=== PATIENT | male | born 1940 | race Caucasian/White ===

== ENCOUNTER 2016-07-01 13:56 | Emergency (ER) | payer OTHER ==
[~2016-07-01] VITALS: Ht 160 cm; Wt 101.4 kg
[~2016-07-01 13:56] MED LIST: APRISO0.375 GM PO; ASACOL400 MG PO; ASPIRIN325 MG PO; AZITHROMYCIN250 MG1 PO; CILOSTAZOL100 MG PO; COLCHICINE,COL0.6 MG PO; COLCRYS0.6 MG PO; FUROSEMIDE40 MG PO; GABAPENTIN300 MG PO; GLIPIZIDE10 M1 PO; GLYBURID-METFO1 EAC3 PO; HUMALOG100 UNIT/1 SC; HYDROCODON-ACE1 EAC7 PO; LASIX20 MG PO; LOVASTATIN20 MG PO; METOPROLOL SUCC25 MG PO; METOPROLOL TART50 MG PO; NITROGLYCERIN0.4 MG SL; NOVOLIN N100 UNIT/1 SC; NOVOLIN N100 UNITS/ PO; NOVOLIN N100 UNITS/ SC; NOVOLOG 10100 UNITS/ SC; OSTEO BI-FLEX1 EAC1 PO; PAXIL10 MG PO; PLAVIX75 MG PO; PREDNISONE10 MG PO; PRINIVIL10 MG PO; SPIRIVA1 INHALATI IH; TRADJENTA5 MG PO; TRAMADOL HCL50 MG PO
[2016-07-01] MEDS ORDERED: FLOMAX0.4 MG PO (14:26)
[2016-07-01] MEDS ORDERED: LIALDA1.2 GM PO (14:27)
[2016-07-01] MEDS ORDERED: HUMALOG100 UNIT/2 SC (14:27)
[2016-07-01] MEDS ORDERED: TRAMADOL-ACETA1 EACH PO (14:28)
[2016-07-01] MEDS ORDERED: ALLOPURINOL100 MG PO (14:28)
[2016-07-01] MEDS ORDERED: FLUOXETINE HCL20 M1 PO (14:29)
[2016-07-01] MEDS ORDERED: FLUOXETINE HCL20 MG PO (14:30)
[2016-07-01] MEDS ORDERED: NITROGLYCERIN0.4 MG SL (14:30)
[2016-07-01] MEDS ORDERED: PENTOXIFYLLINE400 MG PO (14:31)
[2016-07-01] MEDS ORDERED: MUPIROCIN15 GM TP (14:31)
[2016-07-01 14:39] LABS: BASOPHIL COUNT 0.1 K/uL (0-0.1); EOSINOPHIL (%) 1.1 % (0-5); EOSINOPHIL COUNT 0.1 K/uL (0-0.3); IMMATURE GRANULOCYTE (%) 0.8 % (0.0-0.7); IMMATURE GRANULOCYTE COUNT 0.1 K/uL; INSTRUMENT ABS NEUTROPHIL CT 5.8 K/uL; LYMPHOCYTE COUNT 3.3 K/uL (1.0-2.8); MCH 33.3 PG (29.0-34.0); MCHC 32.8 G/DL (30.0-36.0); MCV 101.8 FL (86-99); MEAN PLAT.VOLUME 9.2 uM^3 (9.0-12.4); MONOCYTE (%) 18.6 % (3-12); MONOCYTE COUNT 2.1 K/uL (0-0.8); NEUTROPHIL (%) 50.2 % (45-76); NEUTROPHIL COUNT 5.8 K/uL (1.8-6.4); PLATELET COUNT 219 K/uL (156-360); RBC DIS.WIDTH-SD 52.1 % (39-53); RED BLOOD COUNT 3.93 M/uL (4.00-5.50); WHITE BLOOD COUNT 11.5 K/uL (4.1-10.2)
[2016-07-01 14:47] LABS: INTER. NORMALIZED RATIO 1.2
[2016-07-01 14:53] LABS: CHLORIDE 112 mEq/L (99-109); POTASSIUM 5.1 mEq/L (3.7-5.4); SODIUM 137 mEq/L (136-147)
[2016-07-01 14:55] LABS: GLUCOSE 59 mg/dL (70-99)
[2016-07-01 14:56] LABS: ANION GAP 9 MEQ/L (2-14)
[2016-07-01 14:59] LABS: GFR ESTIMATE (CALCULATED) 37 mL/min/
[2016-07-01 15:00] LABS: UREA NITROGEN (BUN) 53 mg/dL (9-23)
[2016-07-01] MEDS ORDERED: CLEOCIN300 MG PO (17:07)
[2016-07-01 18:31] VITALS: BP 117/43
[2016-07-05] MEDS ORDERED: ACETAMINOPHEN-1 EAC1 PO (15:37)
[2016-07-05] MEDS ORDERED: PEPCID AC20 MG PO (15:52)
[2016-07-05] MEDS ORDERED: PROAIR HFA8.5 GM IH (15:53)
[2016-07-05] MEDS ORDERED: CILOSTAZOL50 MG PO (15:54)
[2016-07-05] MEDS ORDERED: HUMULIN N100 UNIT/2 SC (15:54)
== END 2016-07-01 18:32 | disposition home or self-care (01) ==
LOC: EME 13:56
PROVIDERS: Emergency Medicine
DX: L03.031 Cellulitis of right toe (principal); E86.0 Dehydration; E11.9 Type 2 diabetes mellitus without complications; G89.29 Other chronic pain; J44.9 Chronic obstructive pulmonary disease, unspecified; E78.5 Hyperlipidemia, unspecified; I10 Essential (primary) hypertension; K21.9 Gastro-esophageal reflux disease without esophagitis; I25.10 Atherosclerotic heart disease of native coronary artery without angina pectoris; Z98.61 Coronary angioplasty status; Z95.0 Presence of cardiac pacemaker; Z79.4 Long term (current) use of insulin; Z79.82 Long term (current) use of aspirin; Z87.891 Personal history of nicotine dependence
CPT/HCPCS: 80048; 85025; 85610; 93005; 93926; 99281; 99285; J7030

== ENCOUNTER 2016-07-09 06:56 | Day surgery (SDC) | payer OTHER ==
[~2016-07-09] VITALS: Ht 160 cm; Wt 101.0 kg
[~2016-07-09 06:56] MED LIST changes: +ACETAMINOPHEN-1 EAC1 PO; +ALLOPURINOL100 MG PO; +CILOSTAZOL50 MG PO; +CLEOCIN300 MG PO; +FLOMAX0.4 MG PO; +FLUOXETINE HCL20 M1 PO; +FLUOXETINE HCL20 MG PO; +HUMALOG100 UNIT/2 SC; +HUMULIN N100 UNIT/2 SC; +LIALDA1.2 GM PO; +MUPIROCIN15 GM TP; +PENTOXIFYLLINE400 MG PO; +PEPCID AC20 MG PO; +PROAIR HFA8.5 GM IH; +TRAMADOL-ACETA1 EACH PO
[2016-07-09 07:50] LABS: POINT-OF-CARE METER ID UU13113696
[2016-07-09] MEDS ORDERED: MOTRIN600 MG PO (07:50)
== END 2016-07-09 16:25 | disposition home or self-care (01) ==
LOC: CATH 06:56
PROVIDERS: Surgery
DX: I70.263 Atherosclerosis of native arteries of extremities with gangrene, bilateral legs (principal); I70.92 Chronic total occlusion of artery of the extremities; L97.519 Non-pressure chronic ulcer of other part of right foot with unspecified severity; E11.9 Type 2 diabetes mellitus without complications; Z79.4 Long term (current) use of insulin
CPT/HCPCS: 82948; 94660; C1725; C1760; C1769; C1887; C1894; J1644; J2250; J2720; J3010; S0020

== ENCOUNTER 2016-07-20 11:20 | Day surgery (SDC) | payer OTHER ==
[~2016-07-20] VITALS: Ht 160 cm; Wt 100.0 kg
[~2016-07-20 11:20] MED LIST changes: +GLIPIZIDE10 MG PO; +GLIPIZIDE5 MG PO; +LO-DOSE ASPIRIN81 M2 PO; +MOTRIN600 MG PO
== END 2016-07-20 17:05 | disposition home or self-care (01) ==
LOC: CATH 11:20
DX: I70.262 Atherosclerosis of native arteries of extremities with gangrene, left leg (principal); I70.245 Atherosclerosis of native arteries of left leg with ulceration of other part of foot; I70.92 Chronic total occlusion of artery of the extremities; L97.529 Non-pressure chronic ulcer of other part of left foot with unspecified severity; E11.9 Type 2 diabetes mellitus without complications; I25.10 Atherosclerotic heart disease of native coronary artery without angina pectoris; I10 Essential (primary) hypertension; G47.30 Sleep apnea, unspecified; Z95.0 Presence of cardiac pacemaker; Z72.0 Tobacco use; J44.9 Chronic obstructive pulmonary disease, unspecified; E78.5 Hyperlipidemia, unspecified
CPT/HCPCS: C1725; C1760; C1769; C1887; C1894; J1644; J2250; J3010; S0020

== ENCOUNTER → 2016-07-26 | Outpatient (CLI) | payer OTHER | END | disposition home or self-care (01) | LOC: MBXRAY 16:44 → RAD 16:44 | DX: M19.071 Primary osteoarthritis, right ankle and foot (principal); M19.072 Primary osteoarthritis, left ankle and foot; Z89.421 Acquired absence of other right toe(s); I70.292 Other atherosclerosis of native arteries of extremities, left leg; I70.291 Other atherosclerosis of native arteries of extremities, right leg; I70.268 Atherosclerosis of native arteries of extremities with gangrene, other extremity; M79.9 Soft tissue disorder, unspecified | CPT/HCPCS: 73630 ==

== ENCOUNTER 2016-08-08 05:23 | Inpatient (IN) | payer OTHER ==
[~2016-08-08] VITALS: Ht 160 cm; Wt 99.8 kg
[~2016-08-08 05:23] MED LIST changes: +TRENTAL400 MG PO
[2016-08-08 06:09] VITALS: BP 135/49
[2016-08-08 06:31] LABS: POINT-OF-CARE METER ID UU14174212
[2016-08-08 09:17] LABS: POINT-OF-CARE METER ID UU13113675
[2016-08-08 12:17] LABS: POINT-OF-CARE METER ID UU14188577
[2016-08-08 12:45] VITALS: BP 119/50
[2016-08-08 16:15] VITALS: BP 138/63
[2016-08-08 16:19] LABS: POINT-OF-CARE METER ID UU14188577
[2016-08-08 19:28] VITALS: BP 151/67
[2016-08-08 23:11] VITALS: BP 131/60
[2016-08-09 07:07] LABS: POINT-OF-CARE METER ID UU14149397
[2016-08-09 07:43] VITALS: BP 121/59
[2016-08-09] MEDS ORDERED: PERCOCET 5/31 TABLET PO (09:22)
[2016-08-09 11:49] LABS: POINT-OF-CARE METER ID UU14149397
[2016-08-09] MEDS ORDERED: NORCO 5/3251 TABLET PO (16:34)
[2016-08-09 16:40] LABS: POINT-OF-CARE METER ID UU14149397
[2016-08-09 17:54] VITALS: BP 109/66
[2016-08-09 20:21] VITALS: BP 112/56
[2016-08-09 23:24] VITALS: BP 117/58
[2016-08-10 07:02] LABS: POINT-OF-CARE METER ID UU14188577
[2016-08-10 08:16] VITALS: BP 131/59
[2016-08-10 11:08] LABS: HEMATOCRIT 28.8 % (38.0-50.0); MCH 33.2 PG (29.0-34.0); MCHC 32.3 G/DL (30.0-36.0); MCV 102.9 FL (86-99); MEAN PLAT.VOLUME 9.8 uM^3 (9.0-12.4); PLATELET COUNT 163 K/uL (156-360); RBC DIS.WIDTH-CV 15.1 % (11.8-14.6); RBC DIS.WIDTH-SD 56.8 % (39-53); WHITE BLOOD COUNT 11.3 K/uL (4.1-10.2)
[2016-08-10 11:44] LABS: ANION GAP 10 MEQ/L (2-14); CHLORIDE 103 MEQ/L (99-109); GFR ESTIMATE (CALCULATED) 27 mL/min/; GLUCOSE 272 mg/dL (70-99); SAMPLE HEMOLYSIS CHECK 0; SAMPLE ICTERIC CHECK 0; SAMPLE LIPEMIA CHECK 0; SODIUM 132 MEQ/L (136-147); UREA NITROGEN (BUN) 50 mg/dL (9-23)
[2016-08-10 16:07] LABS: ADD MIUA? YES; BILIRUBIN NEGATIVE; BLOOD NEGATIVE; COLOR YELLOW ((YELLOW)); GLUCOSE (STRIP) NEGATIVE; KETONES NEGATIVE; LEUKOCYTES NEGATIVE; NITRITE NEGATIVE; PROTEIN (STRIP) NEGATIVE; SPECIFIC GRAVITY 1.017 (1.000-1.030); UROBILINOGEN 0.2 MG/DL (0.2-1.0)
[2016-08-10 16:10] VITALS: BP 127/62
[2016-08-10 16:20] LABS: BACTERIA RARE /HPF; EPITHELIAL CELLS NONE SEEN /HPF; HYALINE CASTS 0-5 /LPF; MUCUS TRACE /LPF; RED BLOOD CELLS 20-30 /HPF (0-5); WHITE BLOOD CELLS 0-5 /HPF (0-5)
[2016-08-10 16:40] LABS: URIC ACID 8.5 mg/dL (3.1-9.2)
[2016-08-10 16:41] LABS: INTACT PARATHYROID HORMONE 17 pg/mL (10-69)
[2016-08-10 23:27] VITALS: BP 111/56
[2016-08-11 05:40] LABS: HEMATOCRIT 25.3 % (38.0-50.0); MCH 32.8 PG (29.0-34.0); MCV 102.4 FL (86-99); PLATELET COUNT 148 K/uL (156-360); RBC DIS.WIDTH-CV 14.8 % (11.8-14.6); RBC DIS.WIDTH-SD 55.6 % (39-53); RED BLOOD COUNT 2.47 M/uL (4.00-5.50); WHITE BLOOD COUNT 8.7 K/uL (4.1-10.2)
[2016-08-11 06:05] LABS: ALKALINE PHOSPHATASE 72 IU/L (3-129); ANION GAP 9 MEQ/L (2-14); CHLORIDE 104 MEQ/L (99-109); GFR ESTIMATE (CALCULATED) 22 mL/min/; MAGNESIUM 2.3 mg/dl (1.3-2.7); POTASSIUM 4.4 MEQ/L (3.7-5.4); SAMPLE HEMOLYSIS CHECK 0; SAMPLE ICTERIC CHECK 0; SAMPLE LIPEMIA CHECK 0; SODIUM 133 MEQ/L (136-147); TOTAL BILIRUBIN 0.9 MG/DL (0.0-1.0); UREA NITROGEN (BUN) 59 mg/dL (9-23)
[2016-08-11 06:06] LABS: GLUCOSE 70 mg/dL (70-99)
[2016-08-11 07:06] LABS: EOSINOPHIL (%) 1.8 % (0-5); EOSINOPHIL COUNT 0.2 K/uL (0-0.3); IMMATURE GRANULOCYTE (%) 0.6 % (0.0-0.7); IMMATURE GRANULOCYTE COUNT 0.1 K/uL; INSTRUMENT ABS NEUTROPHIL CT 4.8 K/uL; LYMPHOCYTE COUNT 2.1 K/uL (1.0-2.8); MONOCYTE (%) 18.5 % (3-12); MONOCYTE COUNT 1.6 K/uL (0-0.8); NEUTROPHIL (%) 54.8 % (45-76); NEUTROPHIL COUNT 4.8 K/uL (1.8-6.4)
[2016-08-11 16:48] VITALS: BP 130/60
[2016-08-11 23:20] VITALS: BP 132/62
[2016-08-12 08:00] VITALS: BP 131/57
[2016-08-12 09:24] LABS: ANION GAP 9 MEQ/L (2-14); CHLORIDE 103 MEQ/L (99-109); GFR ESTIMATE (CALCULATED) 28 mL/min/; POTASSIUM 4.7 MEQ/L (3.7-5.4); SAMPLE HEMOLYSIS CHECK 0; SAMPLE ICTERIC CHECK 0; SAMPLE LIPEMIA CHECK 0; SODIUM 132 MEQ/L (136-147); UREA NITROGEN (BUN) 72 mg/dL (9-23)
[2016-08-12 09:25] LABS: GLUCOSE 160 mg/dL (70-99)
[2016-08-12 16:32] VITALS: BP 134/63
[2016-08-12 19:51] LABS: UR CREATININE CONCENTRATION 88.3 MG/DL
[2016-08-12 21:47] VITALS: BP 136/61
[2016-08-12 23:36] VITALS: BP 128/63
[2016-08-13 07:00] VITALS: BP 134/63
[2016-08-13] MEDS ORDERED: A THRU Z SELEC1 EAC2 PO (09:18)
[2016-08-13 10:15] LABS: ANION GAP 8 MEQ/L (2-14); CHLORIDE 107 MEQ/L (99-109); GFR ESTIMATE (CALCULATED) 37 mL/min/; GLUCOSE 202 mg/dL (70-99); POTASSIUM 4.8 MEQ/L (3.7-5.4); SAMPLE HEMOLYSIS CHECK 0; SAMPLE ICTERIC CHECK 0; SAMPLE LIPEMIA CHECK 0; SODIUM 135 MEQ/L (136-147); UREA NITROGEN (BUN) 67 mg/dL (9-23)
[2016-08-13 15:38] VITALS: BP 140/61
[2016-08-13 17:28] LABS: HEMATOCRIT 29.8 % (38.0-50.0); MCH 32.3 PG (29.0-34.0); MCHC 32.2 G/DL (30.0-36.0); MCV 100.3 FL (86-99); MEAN PLAT.VOLUME 9.9 uM^3 (9.0-12.4); RBC DIS.WIDTH-CV 14.4 % (11.8-14.6); WHITE BLOOD COUNT 11.3 K/uL (4.1-10.2)
[2016-08-13 17:29] LABS: PLATELET COUNT 257 K/uL (156-360); RED BLOOD COUNT 2.97 M/uL (4.00-5.50)
[2016-08-13 23:30] VITALS: BP 131/66
[2016-08-14 05:54] LABS: ANION GAP 9 MEQ/L (2-14); CHLORIDE 108 MEQ/L (99-109); GFR ESTIMATE (CALCULATED) 39 mL/min/; GLUCOSE 187 mg/dL (70-99); POTASSIUM 5.2 MEQ/L (3.7-5.4); SAMPLE HEMOLYSIS CHECK 0; SAMPLE ICTERIC CHECK 0; SAMPLE LIPEMIA CHECK 0; SODIUM 137 MEQ/L (136-147); UREA NITROGEN (BUN) 55 mg/dL (9-23)
[2016-08-14 06:56] LABS: POINT-OF-CARE METER ID UU14149397
[2016-08-14 07:49] VITALS: BP 126/83
[2016-08-14 15:06] LABS: C DIFF TOXIN NEGATIVE (NEGATIVE)
[2016-08-14 15:36] LABS: PROBE CHECK PASS; SPECIMEN PROCESSING CONTROL PASS
[2016-08-14 17:11] VITALS: BP 179/75
[2016-08-14 21:54] LABS: POINT-OF-CARE METER ID UU14149397
[2016-08-14 23:25] VITALS: BP 153/65
[2016-08-15 06:01] LABS: ANION GAP 9 MEQ/L (2-14); CHLORIDE 108 MEQ/L (99-109); GFR ESTIMATE (CALCULATED) 45 mL/min/; POTASSIUM 4.9 MEQ/L (3.7-5.4); SAMPLE HEMOLYSIS CHECK 0; SAMPLE ICTERIC CHECK 0; SAMPLE LIPEMIA CHECK 0; SODIUM 138 MEQ/L (136-147); UREA NITROGEN (BUN) 41 mg/dL (9-23)
[2016-08-15 06:02] LABS: GLUCOSE 71 mg/dL (70-99)
[2016-08-15 08:08] VITALS: BP 147/66
[2016-08-15] MEDS ORDERED: BACTRIM,SEPT1 TABLET PO (10:23)
[2016-08-15 15:49] VITALS: BP 121/55
[2016-08-15 23:36] VITALS: BP 138/91
[2016-08-16 07:18] VITALS: BP 144/78
[2016-08-16 11:45] LABS: POINT-OF-CARE METER ID UU14149397
== END 2016-08-16 13:25 | disposition home health service (06) | DRG 256 ==
LOC: SDC 05:23 → 2SOUTH 08:41 → 3EAST 08:41 → SDC 10:34 → 3EAST 11:52
PROVIDERS: Internal Medicine Nephrology; Physician Assistant Surgical; Surgery
DX: E11.52 Type 2 diabetes mellitus with diabetic peripheral angiopathy with gangrene (principal); I12.9 Hypertensive chronic kidney disease with stage 1 through stage 4 chronic kidney disease, or unspecified chronic kidney disease; E11.22 Type 2 diabetes mellitus with diabetic chronic kidney disease; N18.3 Chronic kidney disease, stage 3 (moderate); N17.9 Acute kidney failure, unspecified; I25.10 Atherosclerotic heart disease of native coronary artery without angina pectoris; G47.33 Obstructive sleep apnea (adult) (pediatric); E78.5 Hyperlipidemia, unspecified; J44.9 Chronic obstructive pulmonary disease, unspecified; Z87.891 Personal history of nicotine dependence; E87.1 Hypo-osmolality and hyponatremia; E87.2 Acidosis; Z95.0 Presence of cardiac pacemaker; N40.1 Benign prostatic hyperplasia with lower urinary tract symptoms; R33.8 Other retention of urine; I70.268 Atherosclerosis of native arteries of extremities with gangrene, other extremity; I75.023 Atheroembolism of bilateral lower extremities; E66.9 Obesity, unspecified; Z68.38 Body mass index [BMI] 38.0-38.9, adult; E11.65 Type 2 diabetes mellitus with hyperglycemia; L98.9 Disorder of the skin and subcutaneous tissue, unspecified; L03.116 Cellulitis of left lower limb
CPT/HCPCS: 71020; 76770; 80048; 80053; 81003; 82306; 82570; 82948; 83735; 83970; 84100; 84156; 84439; 84443; 84550; 85025; 85027; 87493; 88305; 88311; 89190; 94640 76; 94660; 94799; 97530 GO; 97530 GP; 99202; G0378; G8978 GP CK; G8979 GP CI; G8987 CK; G8988 GO CJ; J0690; J1170; J1650; J1815; J2250; J2405; J2543; J3010; J7030; J7050; J7512

== ENCOUNTER 2016-09-11 06:51 | Day surgery (SDC) | payer OTHER ==
[~2016-09-11] VITALS: Ht 160 cm; Wt 88.4 kg
[~2016-09-11 06:51] MED LIST changes: +A THRU Z SELEC1 EAC2 PO; +BACTRIM,SEPT1 TABLET PO; +NORCO 5/3251 TABLET PO; +PERCOCET 5/31 TABLET PO
[2016-09-11 07:46] LABS: HEMATOCRIT 27.3 % (38.0-50.0); MCH 30.9 PG (29.0-34.0); MCHC 32.6 G/DL (30.0-36.0); MEAN PLAT.VOLUME 9.4 uM^3 (9.0-12.4); PLATELET COUNT 302 K/uL (156-360); RBC DIS.WIDTH-CV 14.5 % (11.8-14.6); RBC DIS.WIDTH-SD 50.2 % (39-53); RED BLOOD COUNT 2.88 M/uL (4.00-5.50); WHITE BLOOD COUNT 9.9 K/uL (4.1-10.2)
[2016-09-11] MEDS ORDERED: PROCARDIA10 MG PO (07:47)
[2016-09-11 07:54] LABS: MCV 94.8 FL (86-99)
[2016-09-11 08:06] LABS: ANION GAP 11 MEQ/L (2-14); CHLORIDE 106 MEQ/L (99-109); POTASSIUM 4.1 MEQ/L (3.7-5.4); SAMPLE HEMOLYSIS CHECK 0; SAMPLE ICTERIC CHECK 0; SAMPLE LIPEMIA CHECK 0; SODIUM 134 MEQ/L (136-147)
[2016-09-11 08:08] VITALS: BP 120/58
[2016-09-11 08:09] VITALS: BP 120/58
[2016-09-11 08:12] LABS: GFR ESTIMATE (CALCULATED) 39 mL/min/; GLUCOSE 132 mg/dL (70-99); UREA NITROGEN (BUN) 48 mg/dL (9-23)
[2016-09-11 10:56] LABS: POINT-OF-CARE METER ID UU13113675
[2016-09-11 11:17] VITALS: BP 116/48
[2016-09-11 12:38] VITALS: BP 119/50
== END 2016-09-11 12:43 | disposition home or self-care (01) ==
LOC: SDC 06:51
PROVIDERS: Surgery
PROC: 0QBR0ZZ Excision of Left Toe Phalanx, Open Approach (ICD-10-PCS; principal; 2016-09-11)
DX: T81.89XA Other complications of procedures, not elsewhere classified, initial encounter (principal); T81.4XXA Infection following a procedure, initial encounter; Y83.5 Amputation of limb(s) as the cause of abnormal reaction of the patient, or of later complication, without mention of misadventure at the time of the procedure; Z89.422 Acquired absence of other left toe(s); N28.9 Disorder of kidney and ureter, unspecified; E11.9 Type 2 diabetes mellitus without complications; Z79.84 Long term (current) use of oral hypoglycemic drugs; Z79.4 Long term (current) use of insulin; J44.9 Chronic obstructive pulmonary disease, unspecified; Z95.0 Presence of cardiac pacemaker; R01.1 Cardiac murmur, unspecified; I10 Essential (primary) hypertension; K21.9 Gastro-esophageal reflux disease without esophagitis; Z79.82 Long term (current) use of aspirin
CPT/HCPCS: 80048; 82948; 85027; 87205; J0690; J2250; J3010

== ENCOUNTER 2017-03-13 13:50 | Inpatient (IN) | payer OTHER ==
[~2017-03-13] VITALS: Ht 160 cm; Wt 101.0 kg
[~2017-03-13 13:50] MED LIST changes: +PROCARDIA10 MG PO
[2017-03-13 14:33] LABS: BICARBONATE 17.3 mEq/L (22-26); CARBOXY HGB 2.1 % (0-5); METHEMOGLOBIN 0.8 % (0-1.5); PCO2 30 mm Hg (35-45); PO2 40 mm Hg (80-100); SITE RR; pH 7.37 (7.35-7.45)
[2017-03-13 14:34] LABS: COMMENTS - BLOOD GASES A+C+; DEVICE NC; O2 FLOW 4 L/MIN
[2017-03-13 14:35] LABS: HEMATOCRIT 34.1 % (38.0-50.0); MCH 33.7 PG (29.0-34.0); MCHC 33.1 G/DL (30.0-36.0); MCV 101.8 FL (86-99); MEAN PLAT.VOLUME 9.8 uM^3 (9.0-12.4); PLATELET COUNT 159 K/uL (156-360); RBC DIS.WIDTH-CV 15.9 % (11.8-14.6); RBC DIS.WIDTH-SD 59.1 % (39-53); RED BLOOD COUNT 3.35 M/uL (4.00-5.50); WHITE BLOOD COUNT 9.2 K/uL (4.1-10.2)
[2017-03-13 14:44] LABS: CHLORIDE 110 mEq/L (99-109); POTASSIUM 4.7 mEq/L (3.7-5.4); SODIUM 137 mEq/L (136-147)
[2017-03-13 14:47] LABS: GLUCOSE 236 mg/dL (70-99)
[2017-03-13 14:48] LABS: ANION GAP 10 MEQ/L (2-14); TOTAL BILIRUBIN 1.2 mg/dL (0.0-1.0)
[2017-03-13 14:50] LABS: ALKALINE PHOSPHATASE 76 IU/L (3-129); GFR ESTIMATE (CALCULATED) 45 mL/min/
[2017-03-13 14:51] LABS: UREA NITROGEN (BUN) 39 mg/dL (9-23)
[2017-03-13 14:56] LABS: TROP-I INTERPRETATION NEGATIVE; TROPONIN-I 0.01 ng/mL (0.0-0.30)
[2017-03-13] MEDS ORDERED: BACTROBAN OINTM22 GM TP (17:57)
[2017-03-13] MEDS ORDERED: DIABETIC T100 MG/5 M PO (17:57)
[2017-03-13] MEDS ORDERED: TYLENOL EXTRA500 MG PO (17:59)
[2017-03-13] MEDS ORDERED: HUMALOG100 UNIT/2 SC (18:01)
[2017-03-13] MEDS ORDERED: HUMULIN N100 UNIT/2 SC (18:01)
[2017-03-13] MEDS ORDERED: VASHE WOUND TH475 ML IR (18:02)
[2017-03-13] MEDS ORDERED: ZYLOPRIM300 MG PO (18:03)
[2017-03-13] MEDS ORDERED: NORVASC2.5 MG PO (18:06)
[2017-03-13] MEDS ORDERED: LASIX20 MG PO (18:06)
[2017-03-13] MEDS ORDERED: ULTRAM50 MG PO (18:07)
[2017-03-13] MEDS ORDERED: FLONASE16 G1 BOTH NARES (18:09)
[2017-03-13 19:57] VITALS: BP 140/66
[2017-03-13 20:29] LABS: TROP-I INTERPRETATION NEGATIVE; TROPONIN-I 0.02 ng/mL (0.0-0.30)
[2017-03-13 22:37] LABS: POINT-OF-CARE METER ID UU13113774
[2017-03-14 00:15] VITALS: BP 135/60
[2017-03-14 02:07] LABS: TROP-I INTERPRETATION NEGATIVE; TROPONIN-I 0.02 ng/mL (0.0-0.30)
[2017-03-14 06:11] LABS: HEMATOCRIT 32.2 % (38.0-50.0); MCH 33.6 PG (29.0-34.0); MCHC 33.2 G/DL (30.0-36.0); MCV 101.3 FL (86-99); PLATELET COUNT 138 K/uL (156-360); RBC DIS.WIDTH-CV 15.6 % (11.8-14.6); RBC DIS.WIDTH-SD 57.8 % (39-53); RED BLOOD COUNT 3.18 M/uL (4.00-5.50); WHITE BLOOD COUNT 7.9 K/uL (4.1-10.2)
[2017-03-14 06:26] LABS: TROP-I INTERPRETATION NEGATIVE; TROPONIN-I 0.01 ng/mL (0.0-0.30)
[2017-03-14 06:33] LABS: ANION GAP 13 MEQ/L (2-14); CHLORIDE 106 MEQ/L (99-109); GFR ESTIMATE (CALCULATED) 42 mL/min/; GLUCOSE 326 mg/dL (70-99); POTASSIUM 4.4 MEQ/L (3.7-5.4); SAMPLE HEMOLYSIS CHECK 0; SAMPLE ICTERIC CHECK 0; SAMPLE LIPEMIA CHECK 0; SODIUM 137 MEQ/L (136-147); UREA NITROGEN (BUN) 47 mg/dL (9-23)
[2017-03-14 08:00] VITALS: BP 151/69
[2017-03-14 11:42] VITALS: BP 123/60
[2017-03-14 15:17] LABS: POINT-OF-CARE METER ID UU13113774
[2017-03-14 15:57] LABS: POINT-OF-CARE METER ID UU13113774
[2017-03-14 16:22] VITALS: BP 137/64
[2017-03-14 19:49] VITALS: BP 126/57
[2017-03-14 22:36] LABS: POINT-OF-CARE METER ID UU13113725
[2017-03-15 00:20] VITALS: BP 118/56
[2017-03-15 04:05] VITALS: BP 123/56
[2017-03-15 05:42] LABS: POINT-OF-CARE METER ID UU13113725
[2017-03-15 05:57] LABS: ANION GAP 10 MEQ/L (2-14); CHLORIDE 105 MEQ/L (99-109); GFR ESTIMATE (CALCULATED) 39 mL/min/; GLUCOSE 256 mg/dL (70-99); POTASSIUM 4.4 MEQ/L (3.7-5.4); SAMPLE HEMOLYSIS CHECK 0; SAMPLE ICTERIC CHECK 0; SAMPLE LIPEMIA CHECK 0; SODIUM 134 MEQ/L (136-147); UREA NITROGEN (BUN) 63 mg/dL (9-23)
[2017-03-15 07:01] VITALS: BP 125/58
[2017-03-15 12:10] VITALS: BP 127/59
[2017-03-15 13:02] LABS: GLUCOSE 456 mg/dL (70-99)
[2017-03-15 15:05] VITALS: BP 128/75
[2017-03-15 17:11] LABS: POINT-OF-CARE METER ID UU13113774
[2017-03-15 20:08] VITALS: BP 138/65
[2017-03-15 21:05] LABS: POINT-OF-CARE METER ID UU13113725
[2017-03-16 00:11] VITALS: BP 145/63
[2017-03-16 05:00] VITALS: BP 126/61
[2017-03-16 06:42] LABS: ANION GAP 12 MEQ/L (2-14); CHLORIDE 103 MEQ/L (99-109); GFR ESTIMATE (CALCULATED) 39 mL/min/; GLUCOSE 323 mg/dL (70-99); POTASSIUM 4.5 MEQ/L (3.7-5.4); SAMPLE HEMOLYSIS CHECK 0; SAMPLE ICTERIC CHECK 0; SAMPLE LIPEMIA CHECK 0; SODIUM 136 MEQ/L (136-147); UREA NITROGEN (BUN) 70 mg/dL (9-23)
[2017-03-16 06:51] LABS: POINT-OF-CARE METER ID UU13113774
[2017-03-16] MEDS ORDERED: FUROSEMIDE40 MG PO (08:46)
[2017-03-16] MEDS ORDERED: PREDNISONE20 MG PO (08:47)
[2017-03-16] MEDS ORDERED: LISINOPRIL2.5 MG PO (08:51)
[2017-03-16 08:53] VITALS: BP 143/65
[2017-03-16 22:38] LABS: POINT-OF-CARE METER ID UU13113774
== END 2017-03-16 12:20 | disposition home health service (06) | DRG 193 ==
LOC: EME 13:50 → EDOF 16:24 → 5EAST 16:24 → ENRESERV 16:31 → 5EAST 19:16
PROVIDERS: Emergency Medicine; Hospitalist; Internal Medicine Cardiovascular Disease
PROC: 5A09357 Assistance with Respiratory Ventilation, Less than 24 Consecutive Hours, Continuous Positive Airway Pressure (ICD-10-PCS; principal; 2017-03-13)
DX: J18.9 Pneumonia, unspecified organism (principal); J96.01 Acute respiratory failure with hypoxia; J44.0 Chronic obstructive pulmonary disease with (acute) lower respiratory infection; J20.9 Acute bronchitis, unspecified; J44.1 Chronic obstructive pulmonary disease with (acute) exacerbation; I13.0 Hypertensive heart and chronic kidney disease with heart failure and stage 1 through stage 4 chronic kidney disease, or unspecified chronic kidney disease; I50.33 Acute on chronic diastolic (congestive) heart failure; E11.22 Type 2 diabetes mellitus with diabetic chronic kidney disease; N18.3 Chronic kidney disease, stage 3 (moderate); N17.9 Acute kidney failure, unspecified; I47.1 Supraventricular tachycardia; E11.51 Type 2 diabetes mellitus with diabetic peripheral angiopathy without gangrene; E11.65 Type 2 diabetes mellitus with hyperglycemia; G47.33 Obstructive sleep apnea (adult) (pediatric); E78.5 Hyperlipidemia, unspecified; I25.10 Atherosclerotic heart disease of native coronary artery without angina pectoris; I35.0 Nonrheumatic aortic (valve) stenosis; I73.00 Raynaud's syndrome without gangrene; K51.90 Ulcerative colitis, unspecified, without complications; L89.629 Pressure ulcer of left heel, unspecified stage; E11.42 Type 2 diabetes mellitus with diabetic polyneuropathy; M25.552 Pain in left hip; R26.81 Unsteadiness on feet; R53.1 Weakness; M10.9 Gout, unspecified; F32.9 Major depressive disorder, single episode, unspecified; E66.9 Obesity, unspecified; Z79.02 Long term (current) use of antithrombotics/antiplatelets; Z79.4 Long term (current) use of insulin; Z79.82 Long term (current) use of aspirin; Z87.891 Personal history of nicotine dependence; Z95.0 Presence of cardiac pacemaker; Z95.5 Presence of coronary angioplasty implant and graft
CPT/HCPCS: 36415; 36600; 71010; 71020; 80048; 80053; 80061; 82043; 82570; 82803; 82948; 83036; 83880; 84443; 84484; 84999; 85025; 85027; 93005; 94640; 94640 76; 94660; 94799; 99202; 99281; 99285; J0696; J1644; J1815; J1940; J2920; J2930; J7512

== ENCOUNTER 2017-04-09 14:26 | Inpatient (IN) | payer OTHER ==
[~2017-04-09] VITALS: Ht 160 cm; Wt 81.7 kg
[~2017-04-09 14:26] MED LIST changes: +BACTROBAN OINTM22 GM TP; +DIABETIC T100 MG/5 M PO; +FLONASE16 G1 BOTH NARES; +LISINOPRIL2.5 MG PO; +NORVASC2.5 MG PO; +PREDNISONE20 MG PO; +TYLENOL EXTRA500 MG PO; +ULTRAM50 MG PO; +VASHE WOUND TH475 ML IR; +ZYLOPRIM300 MG PO
[2017-04-09] MEDS ORDERED: PROCARDIA XL30 MG PO (15:44)
[2017-04-09] MEDS ORDERED: HUMULIN 70100 UNIT/3 SC (15:45)
[2017-04-09 16:05] LABS: HEMATOCRIT 30.1 % (38.0-50.0); MCH 33.2 PG (29.0-34.0); MCHC 33.2 G/DL (30.0-36.0); RBC DIS.WIDTH-CV 14.7 % (11.8-14.6); RBC DIS.WIDTH-SD 53.1 % (39-53); RED BLOOD COUNT 3.01 M/uL (4.00-5.50); WHITE BLOOD COUNT 8.7 K/uL (4.1-10.2)
[2017-04-09 16:07] LABS: PLATELET COUNT 277 K/uL (156-360)
[2017-04-09 16:17] LABS: CHLORIDE 109 mEq/L (99-109); POTASSIUM 5.1 mEq/L (3.7-5.4); SODIUM 137 mEq/L (136-147)
[2017-04-09 16:20] LABS: GLUCOSE 135 mg/dL (70-99); TOTAL PROTEIN 6.8 g/dL (6.4-8.3)
[2017-04-09 16:21] LABS: TOTAL BILIRUBIN 0.6 mg/dL (0.0-1.0)
[2017-04-09 16:23] LABS: ALKALINE PHOSPHATASE 63 IU/L (3-129); GFR ESTIMATE (CALCULATED) 42 mL/min/ (58.99-99999)
[2017-04-09 16:24] LABS: UREA NITROGEN (BUN) 55 mg/dL (9-23)
[2017-04-09 16:25] LABS: AST (GOT) 18 IU/L (2-34)
[2017-04-09 16:26] LABS: ALT (GPT) 15 IU/L (3-49)
[2017-04-09 16:29] LABS: CREATININE 1.7 mg/dL (0.6-1.3)
[2017-04-09 19:57] VITALS: BP 111/54
[2017-04-09 23:19] VITALS: BP 109/54
[2017-04-10 06:01] LABS: HEMATOCRIT 28.7 % (38.0-50.0); HEMOGLOBIN 9.1 G/DL (12.5-16.6); MCH 32.4 PG (29.0-34.0); MCHC 31.7 G/DL (30.0-36.0); MCV 102.1 FL (86-99); PLATELET COUNT 263 K/uL (156-360); RBC DIS.WIDTH-CV 14.7 % (11.8-14.6); RBC DIS.WIDTH-SD 54.9 % (39-53); RED BLOOD COUNT 2.81 M/uL (4.00-5.50); WHITE BLOOD COUNT 8.6 K/uL (4.1-10.2)
[2017-04-10 06:25] LABS: INTER. NORMALIZED RATIO 1.2
[2017-04-10 06:28] LABS: PTT 28.8 SEC (25-37)
[2017-04-10 06:53] LABS: CHLORIDE 111 MEQ/L (99-109); CREATININE 1.6 MG/DL (0.6-1.3); GFR ESTIMATE (CALCULATED) 45 mL/min/ (58.99-99999); GLUCOSE 154 mg/dL (70-99); POTASSIUM 4.6 MEQ/L (3.7-5.4); SODIUM 140 MEQ/L (136-147); UREA NITROGEN (BUN) 50 mg/dL (9-23)
[2017-04-10 08:03] LABS: APPEARANCE CLEAR ((CLEAR)); BILIRUBIN NEGATIVE; BLOOD NEGATIVE; COLOR YELLOW ((YELLOW)); GLUCOSE (STRIP) NEGATIVE; KETONES NEGATIVE; LEUKOCYTES NEGATIVE; NITRITE NEGATIVE; PROTEIN (STRIP) NEGATIVE; SPECIFIC GRAVITY 1.017 (1.000-1.030); UROBILINOGEN 0.2 MG/DL (0.2-1.0)
[2017-04-10 08:16] VITALS: BP 104/55
[2017-04-10 12:00] VITALS: BP 104/56
[2017-04-10] MEDS ORDERED: BREO ELLIPTA I1 EACH IH (14:05)
[2017-04-10] MEDS ORDERED: TRAMADOL HCL50 MG PO (14:07)
[2017-04-10 16:00] VITALS: BP 122/59
[2017-04-11 00:07] VITALS: BP 109/58
[2017-04-11 06:05] LABS: BASOPHIL (%) 0.3 % (0-1); EOSINOPHIL (%) 4.2 % (0-5); EOSINOPHIL COUNT 0.4 K/uL (0-0.3); HEMOGLOBIN 8.7 G/DL (12.5-16.6); LYMPHOCYTE (%) 22.3 % (15-42); LYMPHOCYTE COUNT 2.1 K/uL (1.0-2.8); MCH 32.8 PG (29.0-34.0); MCHC 32.2 G/DL (30.0-36.0); MCV 101.9 FL (86-99); MONOCYTE (%) 14.5 % (3-12); MONOCYTE COUNT 1.4 K/uL (0-0.8); NEUTROPHIL (%) 57.7 % (45-76); NEUTROPHIL COUNT 5.5 K/uL (1.8-6.4); PLATELET COUNT 277 K/uL (156-360); RED BLOOD COUNT 2.65 M/uL (4.00-5.50); WHITE BLOOD COUNT 9.5 K/uL (4.1-10.2)
[2017-04-11 06:28] LABS: CHLORIDE 112 MEQ/L (99-109); CREATININE 1.9 MG/DL (0.6-1.3); GFR ESTIMATE (CALCULATED) 37 mL/min/ (58.99-99999); GLUCOSE 76 mg/dL (70-99); POTASSIUM 4.1 MEQ/L (3.7-5.4); SODIUM 141 MEQ/L (136-147); UREA NITROGEN (BUN) 46 mg/dL (9-23)
[2017-04-11 07:42] VITALS: BP 101/45
[2017-04-11 15:15] LABS: APPEARANCE CLEAR ((CLEAR)); BILIRUBIN NEGATIVE; BLOOD NEGATIVE; COLOR YELLOW ((YELLOW)); GLUCOSE (STRIP) NEGATIVE; KETONES NEGATIVE; LEUKOCYTES NEGATIVE; NITRITE NEGATIVE; PROTEIN (STRIP) NEGATIVE; SPECIFIC GRAVITY 1.016 (1.000-1.030); UROBILINOGEN 0.2 MG/DL (0.2-1.0)
[2017-04-11 15:54] VITALS: BP 118/59
[2017-04-11 18:01] LABS: UR CREATININE CONCENTRATION 91.1 MG/DL
[2017-04-12] VITALS (8 sets, daily range): BP systolic 98–135; BP diastolic 32–62
[2017-04-12 06:25] LABS: ALBUMIN 2.9 G/DL (3.2-4.8); CHLORIDE 109 MEQ/L (99-109); CREATININE 2.1 MG/DL (0.6-1.3); GFR ESTIMATE (CALCULATED) 33 mL/min/ (58.99-99999); GLUCOSE 92 mg/dL (70-99); IRON 23 MCG/DL (35-150); PHOSPHORUS 4.4 mg/dL (2.5-4.9); POTASSIUM 4.3 MEQ/L (3.7-5.4); SODIUM 140 MEQ/L (136-147); TRANSFERRIN SATUR. 17 % (20-55); UREA NITROGEN (BUN) 41 mg/dL (9-23)
[2017-04-12 06:40] LABS: URIC ACID 4.7 mg/dL (3.1-9.2)
[2017-04-12 09:10] LABS: INTACT PARATHYROID HORMONE 40 pg/mL (10-69)
[2017-04-12 22:26] LABS: BASE EXCESS -8.3 mEq/L (-3 to +3); BICARBONATE 14.6 mEq/L (22-26); CARBOXY HGB 1.3 % (0-5); METHEMOGLOBIN 1.2 % (0-1.5); pH 7.43 (7.35-7.45)
[2017-04-12 22:27] LABS: COMMENTS - BLOOD GASES C+; DEVICE NRBM; O2 FLOW 15 L/MIN; PCO2 22 mm Hg (35-45); PO2 57 mm Hg (80-100); SITE LR; TOTAL RESP RATE 24 resp/min
[2017-04-12 22:51] LABS: BASOPHIL (%) 0.3 % (0-1); EOSINOPHIL (%) 1.6 % (0-5); EOSINOPHIL COUNT 0.2 K/uL (0-0.3); HEMATOCRIT 29.3 % (38.0-50.0); HEMOGLOBIN 8.9 G/DL (12.5-16.6); IMMATURE GRANULOCYTE (%) 0.6 % (0.0-0.7); LYMPHOCYTE (%) 16.5 % (15-42); LYMPHOCYTE COUNT 1.8 K/uL (1.0-2.8); MCH 33.2 PG (29.0-34.0); MCHC 30.4 G/DL (30.0-36.0); MONOCYTE (%) 14.3 % (3-12); MONOCYTE COUNT 1.6 K/uL (0-0.8); NEUTROPHIL (%) 66.7 % (45-76); NEUTROPHIL COUNT 7.2 K/uL (1.8-6.4); PLATELET COUNT 307 K/uL (156-360); RBC DIS.WIDTH-CV 15.6 % (11.8-14.6); RBC DIS.WIDTH-SD 61.2 % (39-53); RED BLOOD COUNT 2.68 M/uL (4.00-5.50); WHITE BLOOD COUNT 10.8 K/uL (4.1-10.2)
[2017-04-12 22:52] LABS: MCV 109.3 FL (86-99)
[2017-04-12 22:53] LABS: TROP-I INTERPRETATION NEGATIVE; TROPONIN-I 0.03 ng/mL (0.0-0.30)
[2017-04-13] VITALS (24 sets, daily range): BP systolic 99–129; BP diastolic 18–62
[2017-04-13 05:25] LABS: TROP-I INTERPRETATION NEGATIVE; TROPONIN-I 0.22 ng/mL (0.0-0.30)
[2017-04-13 06:32] LABS: ALBUMIN 2.8 G/DL (3.2-4.8); CHLORIDE 103 MEQ/L (99-109); PHOSPHORUS 4.8 mg/dL (2.5-4.9); POTASSIUM 5.1 MEQ/L (3.7-5.4); SODIUM 133 MEQ/L (136-147); UREA NITROGEN (BUN) 46 mg/dL (9-23)
[2017-04-13 06:33] LABS: CREATININE 2.6 MG/DL (0.6-1.3); GFR ESTIMATE (CALCULATED) 26 mL/min/ (58.99-99999); GLUCOSE 321 mg/dL (70-99)
[2017-04-13 11:05] LABS: APPEARANCE CLOUDY ((CLEAR)); BILIRUBIN NEGATIVE; BLOOD NEGATIVE; COLOR YELLOW ((YELLOW)); GLUCOSE (STRIP) NEGATIVE; KETONES NEGATIVE; LEUKOCYTES NEGATIVE; NITRITE NEGATIVE; PROTEIN (STRIP) 30; SPECIFIC GRAVITY 1.019 (1.000-1.030); UROBILINOGEN 0.2 MG/DL (0.2-1.0)
[2017-04-13 11:16] LABS: BACTERIA NONE SEEN /HPF; EPITHELIAL CELLS RARE /HPF; HYALINE CASTS 0-5 /LPF; MUCUS TRACE /LPF; RED BLOOD CELLS 0-5 /HPF (0-5); UCUL ADDED? NO; WHITE BLOOD CELLS 0-5 /HPF (0-5)
[2017-04-14] VITALS (24 sets, daily range): BP systolic 99–132; BP diastolic 38–77
[2017-04-14 06:46] LABS: ALBUMIN 2.6 G/DL (3.2-4.8); ALKALINE PHOSPHATASE 61 IU/L (3-129); ALT (GPT) 17 IU/L (3-49); AST (GOT) 30 IU/L (2-34); CHLORIDE 105 MEQ/L (99-109); CREATININE 2.6 MG/DL (0.6-1.3); GFR ESTIMATE (CALCULATED) 26 mL/min/ (58.99-99999); PHOSPHORUS 3.6 mg/dL (2.5-4.9); SODIUM 139 MEQ/L (136-147); TOTAL BILIRUBIN 0.6 MG/DL (0.0-1.0); TOTAL PROTEIN 5.8 G/DL (6.4-8.3); UREA NITROGEN (BUN) 54 mg/dL (9-23)
[2017-04-14 06:52] LABS: GLUCOSE 130 mg/dL (70-99); POTASSIUM 3.9 MEQ/L (3.7-5.4)
[2017-04-15] VITALS (21 sets, daily range): BP systolic 94–136; BP diastolic 34–78
[2017-04-15 05:59] LABS: BASOPHIL (%) 0.1 % (0-1); EOSINOPHIL (%) 0.6 % (0-5); EOSINOPHIL COUNT 0.1 K/uL (0-0.3); HEMATOCRIT 24.2 % (38.0-50.0); HEMOGLOBIN 7.7 G/DL (12.5-16.6); IMMATURE GRANULOCYTE (%) 1.8 % (0.0-0.7); LYMPHOCYTE (%) 12.4 % (15-42); LYMPHOCYTE COUNT 1.2 K/uL (1.0-2.8); MCH 32.5 PG (29.0-34.0); MCHC 31.8 G/DL (30.0-36.0); MONOCYTE (%) 11.7 % (3-12); MONOCYTE COUNT 1.1 K/uL (0-0.8); NEUTROPHIL (%) 73.4 % (45-76); NEUTROPHIL COUNT 7.1 K/uL (1.8-6.4); NRBC (%) 0.3 /100 WBC (0-0); PLATELET COUNT 280 K/uL (156-360); RBC DIS.WIDTH-CV 15.1 % (11.8-14.6); RBC DIS.WIDTH-SD 54.4 % (39-53); RED BLOOD COUNT 2.37 M/uL (4.00-5.50); WHITE BLOOD COUNT 9.7 K/uL (4.1-10.2)
[2017-04-15 06:12] LABS: ALBUMIN 2.4 G/DL (3.2-4.8); CHLORIDE 103 MEQ/L (99-109); GFR ESTIMATE (CALCULATED) 35 mL/min/ (58.99-99999); PHOSPHORUS 3.3 mg/dL (2.5-4.9); POTASSIUM 4.1 MEQ/L (3.7-5.4); SODIUM 140 MEQ/L (136-147); UREA NITROGEN (BUN) 44 mg/dL (9-23)
[2017-04-15 06:13] LABS: GLUCOSE 208 mg/dL (70-99)
[2017-04-15 06:17] LABS: MCV 102.1 FL (86-99)
[2017-04-15 10:30] LABS: ABSOLUTE RETICULOCYTE CT. 0.1 M/uL (0.02-0.08); IMM.RETIC FRACTION 19.6 % (3-19); RETIC HGB EQUIVALENT 28.7 (28-36)
[2017-04-15 10:34] LABS: RETICULOCYTE COUNT 3.9 % (0.5-1.8)
[2017-04-16] VITALS (18 sets, daily range): BP systolic 96–138; BP diastolic 45–88
[2017-04-16 06:43] LABS: BASOPHIL (%) 0.2 % (0-1); EOSINOPHIL (%) 0.3 % (0-5); HEMATOCRIT 24.4 % (38.0-50.0); HEMOGLOBIN 7.9 G/DL (12.5-16.6); IMMATURE GRANULOCYTE (%) 2.3 % (0.0-0.7); LYMPHOCYTE (%) 11.8 % (15-42); LYMPHOCYTE COUNT 1.4 K/uL (1.0-2.8); MCH 33.1 PG (29.0-34.0); MCHC 32.4 G/DL (30.0-36.0); MCV 102.1 FL (86-99); MONOCYTE (%) 11.2 % (3-12); MONOCYTE COUNT 1.3 K/uL (0-0.8); NEUTROPHIL (%) 74.2 % (45-76); NEUTROPHIL COUNT 8.5 K/uL (1.8-6.4); NRBC (%) 0.7 /100 WBC (0-0); PLATELET COUNT 325 K/uL (156-360); RBC DIS.WIDTH-CV 15.3 % (11.8-14.6); RBC DIS.WIDTH-SD 55.3 % (39-53); RED BLOOD COUNT 2.39 M/uL (4.00-5.50); WHITE BLOOD COUNT 11.5 K/uL (4.1-10.2)
[2017-04-16 06:49] LABS: ALBUMIN 2.4 G/DL (3.2-4.8); CHLORIDE 101 MEQ/L (99-109); CREATININE 1.8 MG/DL (0.6-1.3); GFR ESTIMATE (CALCULATED) 39 mL/min/ (58.99-99999); GLUCOSE 189 mg/dL (70-99); PHOSPHORUS 3.1 mg/dL (2.5-4.9); SODIUM 138 MEQ/L (136-147); UREA NITROGEN (BUN) 32 mg/dL (9-23)
[2017-04-16 06:51] LABS: ALBUMIN 2.6 G/DL (3.2-4.8); ALKALINE PHOSPHATASE 53 IU/L (3-129); ALT (GPT) 17 IU/L (3-49); CHLORIDE 100 MEQ/L (99-109); CREATININE 1.8 MG/DL (0.6-1.3); GFR ESTIMATE (CALCULATED) 39 mL/min/ (58.99-99999); GLUCOSE 193 mg/dL (70-99); POTASSIUM 3.7 MEQ/L (3.7-5.4); SODIUM 136 MEQ/L (136-147); TOTAL PROTEIN 5.7 G/DL (6.4-8.3); UREA NITROGEN (BUN) 33 mg/dL (9-23)
[2017-04-16 06:52] LABS: AST (GOT) 15 IU/L (2-34); TOTAL BILIRUBIN 0.8 MG/DL (0.0-1.0)
[2017-04-17] VITALS (15 sets, daily range): BP systolic 80–134; BP diastolic 33–60
[2017-04-17 06:06] LABS: BASOPHIL (%) 0.2 % (0-1); EOSINOPHIL (%) 0.5 % (0-5); EOSINOPHIL COUNT 0.1 K/uL (0-0.3); HEMATOCRIT 25.1 % (38.0-50.0); HEMOGLOBIN 7.9 G/DL (12.5-16.6); IMMATURE GRANULOCYTE (%) 1.4 % (0.0-0.7); LYMPHOCYTE (%) 13.2 % (15-42); LYMPHOCYTE COUNT 1.7 K/uL (1.0-2.8); MCH 32.4 PG (29.0-34.0); MCHC 31.5 G/DL (30.0-36.0); MCV 102.9 FL (86-99); MONOCYTE (%) 9.8 % (3-12); MONOCYTE COUNT 1.3 K/uL (0-0.8); NEUTROPHIL (%) 74.9 % (45-76); NEUTROPHIL COUNT 9.9 K/uL (1.8-6.4); NRBC (%) 0.5 /100 WBC (0-0); PLATELET COUNT 318 K/uL (156-360); RBC DIS.WIDTH-CV 15.4 % (11.8-14.6); RBC DIS.WIDTH-SD 56.7 % (39-53); RED BLOOD COUNT 2.44 M/uL (4.00-5.50); WHITE BLOOD COUNT 13.2 K/uL (4.1-10.2)
[2017-04-17 06:27] LABS: ALBUMIN 2.5 G/DL (3.2-4.8); CHLORIDE 101 MEQ/L (99-109); GFR ESTIMATE (CALCULATED) 30 mL/min/ (58.99-99999); PHOSPHORUS 4.1 mg/dL (2.5-4.9); POTASSIUM 3.9 MEQ/L (3.7-5.4); SODIUM 138 MEQ/L (136-147); UREA NITROGEN (BUN) 38 mg/dL (9-23)
[2017-04-17 06:28] LABS: CREATININE 2.3 MG/DL (0.6-1.3); GLUCOSE 92 mg/dL (70-99)
[2017-04-17 16:40] LABS: APPEARANCE CLEAR ((CLEAR)); BILIRUBIN NEGATIVE; BLOOD MODERATE; COLOR YELLOW ((YELLOW)); GLUCOSE (STRIP) NEGATIVE; KETONES NEGATIVE; LEUKOCYTES NEGATIVE; NITRITE NEGATIVE; PROTEIN (STRIP) NEGATIVE; SPECIFIC GRAVITY 1.009 (1.000-1.030); UROBILINOGEN 0.2 MG/DL (0.2-1.0)
[2017-04-17 17:20] LABS: BACTERIA RARE /HPF; EPITHELIAL CELLS RARE /HPF; MUCUS TRACE /LPF; RED BLOOD CELLS 20-30 /HPF (0-5)
[2017-04-17 22:39] LABS: Cryocrit None Detected (()); Cryoglobulin, Qualitative None Detected (None Detected)
[2017-04-18] VITALS (22 sets, daily range): BP systolic 66–133; BP diastolic 38–82
[2017-04-18 05:29] LABS: BASOPHIL (%) 0.3 % (0-1); EOSINOPHIL (%) 0.8 % (0-5); EOSINOPHIL COUNT 0.1 K/uL (0-0.3); HEMATOCRIT 23.5 % (38.0-50.0); HEMOGLOBIN 7.4 G/DL (12.5-16.6); IMMATURE GRANULOCYTE (%) 1.1 % (0.0-0.7); LYMPHOCYTE COUNT 1.4 K/uL (1.0-2.8); MCH 32.7 PG (29.0-34.0); MCHC 31.5 G/DL (30.0-36.0); MONOCYTE (%) 8.7 % (3-12); MONOCYTE COUNT 1.1 K/uL (0-0.8); NEUTROPHIL (%) 78.1 % (45-76); NEUTROPHIL COUNT 10.2 K/uL (1.8-6.4); NRBC (%) 0.2 /100 WBC (0-0); PLATELET COUNT 322 K/uL (156-360); RBC DIS.WIDTH-CV 15.9 % (11.8-14.6); RBC DIS.WIDTH-SD 57.5 % (39-53); RED BLOOD COUNT 2.26 M/uL (4.00-5.50)
[2017-04-18 05:54] LABS: ALBUMIN 2.6 G/DL (3.2-4.8); CHLORIDE 101 MEQ/L (99-109); CREATININE 2.3 MG/DL (0.6-1.3); GFR ESTIMATE (CALCULATED) 30 mL/min/ (58.99-99999); GLUCOSE 125 mg/dL (70-99); POTASSIUM 3.9 MEQ/L (3.7-5.4); SODIUM 140 MEQ/L (136-147); UREA NITROGEN (BUN) 41 mg/dL (9-23)
[2017-04-18 10:11] LABS: BASE EXCESS 3.8 mEq/L (-3 to +3); BICARBONATE 27.6 mEq/L (22-26); CARBOXY HGB 1.5 % (0-5); COMMENTS - BLOOD GASES A+C+; DEVICE HHFNC; FI02 100 %; METHEMOGLOBIN 0.9 % (0-1.5); O2 FLOW 45 L/MIN; PCO2 37 mm Hg (35-45); PO2 87 mm Hg (80-100); SITE LR; TOTAL RESP RATE 25 resp/min; pH 7.48 (7.35-7.45)
[2017-04-19] VITALS (28 sets, daily range): BP systolic 102–139; BP diastolic 36–77
[2017-04-19 03:42] LABS: BASOPHIL (%) 0.3 % (0-1); EOSINOPHIL (%) 0.6 % (0-5); EOSINOPHIL COUNT 0.1 K/uL (0-0.3); HEMATOCRIT 29.6 % (38.0-50.0); IMMATURE GRANULOCYTE (%) 2.2 % (0.0-0.7); LYMPHOCYTE (%) 11.7 % (15-42); LYMPHOCYTE COUNT 1.5 K/uL (1.0-2.8); MCH 32.6 PG (29.0-34.0); MCHC 33.1 G/DL (30.0-36.0); MONOCYTE (%) 11.5 % (3-12); MONOCYTE COUNT 1.4 K/uL (0-0.8); NEUTROPHIL (%) 73.7 % (45-76); NEUTROPHIL COUNT 9.2 K/uL (1.8-6.4); NRBC (%) 0.2 /100 WBC (0-0); PLATELET COUNT 282 K/uL (156-360); RBC DIS.WIDTH-CV 18.5 % (11.8-14.6); RBC DIS.WIDTH-SD 63.4 % (39-53); WHITE BLOOD COUNT 12.5 K/uL (4.1-10.2)
[2017-04-19 03:43] LABS: HEMOGLOBIN 9.8 G/DL (12.5-16.6); MCV 98.3 FL (86-99); RED BLOOD COUNT 3.01 M/uL (4.00-5.50)
[2017-04-19 03:49] LABS: CHLORIDE 98 mEq/L (99-109); POTASSIUM 3.6 mEq/L (3.7-5.4); SODIUM 136 mEq/L (136-147)
[2017-04-19 03:50] LABS: GLUCOSE 107 mg/dL (70-99)
[2017-04-19 03:54] LABS: CREATININE 2.2 mg/dL (0.6-1.3); GFR ESTIMATE (CALCULATED) 31 mL/min/ (58.99-99999)
[2017-04-19 03:55] LABS: UREA NITROGEN (BUN) 38 mg/dL (9-23)
[2017-04-20] VITALS (24 sets, daily range): BP systolic 108–151; BP diastolic 43–72
[2017-04-21] VITALS (24 sets, daily range): BP systolic 96–155; BP diastolic 50–92
[2017-04-21 12:29] LABS: CHLORIDE 99 MEQ/L (99-109); CREATININE 1.7 MG/DL (0.6-1.3); GFR ESTIMATE (CALCULATED) 42 mL/min/ (58.99-99999); GLUCOSE 172 mg/dL (70-99); POTASSIUM 3.7 MEQ/L (3.7-5.4); SODIUM 139 MEQ/L (136-147); UREA NITROGEN (BUN) 54 mg/dL (9-23)
[2017-04-21 14:07] LABS: HEMATOCRIT 33.3 % (38.0-50.0); HEMOGLOBIN 10.6 G/DL (12.5-16.6); MCH 31.7 PG (29.0-34.0); MCHC 31.8 G/DL (30.0-36.0); MCV 99.7 FL (86-99); PLATELET COUNT 355 K/uL (156-360); RBC DIS.WIDTH-CV 17.4 % (11.8-14.6); RBC DIS.WIDTH-SD 62.2 % (39-53); RED BLOOD COUNT 3.34 M/uL (4.00-5.50); WHITE BLOOD COUNT 15.4 K/uL (4.1-10.2)
[2017-04-21 14:29] LABS: Neutrophil Cytoplasmic Aby Negative (Negative)
[2017-04-21 14:46] LABS: CHLORIDE 99 MEQ/L (99-109); CREATININE 1.9 MG/DL (0.6-1.3); GFR ESTIMATE (CALCULATED) 37 mL/min/ (58.99-99999); GLUCOSE 196 mg/dL (70-99); POTASSIUM 3.5 MEQ/L (3.7-5.4); SODIUM 138 MEQ/L (136-147); UREA NITROGEN (BUN) 53 mg/dL (9-23)
[2017-04-22] VITALS (13 sets, daily range): BP systolic 105–141; BP diastolic 49–75
[2017-04-22 05:43] LABS: HEMATOCRIT 34.3 % (38.0-50.0); HEMOGLOBIN 11.1 G/DL (12.5-16.6); MCH 31.9 PG (29.0-34.0); MCHC 32.4 G/DL (30.0-36.0); MCV 98.6 FL (86-99); PLATELET COUNT 371 K/uL (156-360); RBC DIS.WIDTH-CV 17.2 % (11.8-14.6); RBC DIS.WIDTH-SD 61.9 % (39-53); RED BLOOD COUNT 3.48 M/uL (4.00-5.50); WHITE BLOOD COUNT 17.4 K/uL (4.1-10.2)
[2017-04-22 06:29] LABS: CHLORIDE 101 MEQ/L (99-109); CREATININE 1.9 MG/DL (0.6-1.3); GFR ESTIMATE (CALCULATED) 37 mL/min/ (58.99-99999); POTASSIUM 3.9 MEQ/L (3.7-5.4); SODIUM 139 MEQ/L (136-147); UREA NITROGEN (BUN) 56 mg/dL (9-23)
[2017-04-22 06:30] LABS: GLUCOSE 103 mg/dL (70-99)
[2017-04-22 19:55] LABS: GLOMERULAR BASEMENT MEMB ABY+ <1.0 AI (<1.0)
[2017-04-23 00:02] VITALS: BP 147/65
[2017-04-23 03:54] VITALS: BP 132/76
[2017-04-23 07:38] VITALS: BP 138/76
[2017-04-23 09:56] LABS: CHLORIDE 102 mEq/L (99-109)
[2017-04-23 09:57] LABS: POTASSIUM 4.3 mEq/L (3.7-5.4); SODIUM 138 mEq/L (136-147)
[2017-04-23 10:02] LABS: GFR ESTIMATE (CALCULATED) 35 mL/min/ (58.99-99999)
[2017-04-23 10:03] LABS: UREA NITROGEN (BUN) 60 mg/dL (9-23)
[2017-04-23 10:04] LABS: GLUCOSE 199 mg/dL (70-99)
[2017-04-23 10:45] LABS: BASOPHIL (%) 0.5 % (0-1); BASOPHIL COUNT 0.1 K/uL (0-0.1); EOSINOPHIL (%) 0.1 % (0-5); HEMATOCRIT 40.8 % (38.0-50.0); IMMATURE GRANULOCYTE (%) 2.7 % (0.0-0.7); LYMPHOCYTE (%) 8.2 % (15-42); LYMPHOCYTE COUNT 1.5 K/uL (1.0-2.8); MCHC 32.1 G/DL (30.0-36.0); MCV 99.5 FL (86-99); MONOCYTE (%) 12.3 % (3-12); MONOCYTE COUNT 2.2 K/uL (0-0.8); NEUTROPHIL (%) 76.2 % (45-76); NEUTROPHIL COUNT 13.8 K/uL (1.8-6.4); PLATELET COUNT 398 K/uL (156-360); RBC DIS.WIDTH-SD 61.2 % (39-53); WHITE BLOOD COUNT 18.1 K/uL (4.1-10.2)
[2017-04-23 10:57] LABS: HEMOGLOBIN 13.1 G/DL (12.5-16.6)
[2017-04-23 16:20] VITALS: BP 146/67
[2017-04-23 18:32] LABS: GLUCOSE 354 mg/dL (70-99)
[2017-04-23 21:07] VITALS: BP 125/57
[2017-04-23 23:57] VITALS: BP 158/72
[2017-04-24 06:50] LABS: BASOPHIL (%) 0.5 % (0-1); BASOPHIL COUNT 0.1 K/uL (0-0.1); EOSINOPHIL (%) 0.4 % (0-5); EOSINOPHIL COUNT 0.1 K/uL (0-0.3); HEMATOCRIT 37.5 % (38.0-50.0); HEMOGLOBIN 12.3 G/DL (12.5-16.6); IMMATURE GRANULOCYTE (%) 4.5 % (0.0-0.7); LYMPHOCYTE (%) 11.1 % (15-42); LYMPHOCYTE COUNT 2.1 K/uL (1.0-2.8); MCH 32.5 PG (29.0-34.0); MCHC 32.8 G/DL (30.0-36.0); MCV 99.2 FL (86-99); MONOCYTE (%) 13.6 % (3-12); MONOCYTE COUNT 2.6 K/uL (0-0.8); NEUTROPHIL (%) 69.9 % (45-76); NEUTROPHIL COUNT 13.3 K/uL (1.8-6.4); PLATELET COUNT 381 K/uL (156-360); RBC DIS.WIDTH-SD 61.6 % (39-53); RED BLOOD COUNT 3.78 M/uL (4.00-5.50); WHITE BLOOD COUNT 19.1 K/uL (4.1-10.2)
[2017-04-24 07:19] LABS: CHLORIDE 102 MEQ/L (99-109); CREATININE 1.9 MG/DL (0.6-1.3); GFR ESTIMATE (CALCULATED) 37 mL/min/ (58.99-99999); POTASSIUM 4.1 MEQ/L (3.7-5.4); SODIUM 138 MEQ/L (136-147); UREA NITROGEN (BUN) 65 mg/dL (9-23)
[2017-04-24 07:24] LABS: GLUCOSE 110 mg/dL (70-99)
[2017-04-24 08:33] VITALS: BP 137/69
[2017-04-24 16:00] VITALS: BP 119/52
[2017-04-24 21:09] VITALS: BP 127/60
[2017-04-25 00:27] VITALS: BP 134/64
[2017-04-25 07:45] LABS: CHLORIDE 101 MEQ/L (99-109); CREATININE 1.9 MG/DL (0.6-1.3); GFR ESTIMATE (CALCULATED) 37 mL/min/ (58.99-99999); GLUCOSE 137 mg/dL (70-99); POTASSIUM 4.1 MEQ/L (3.7-5.4); SODIUM 137 MEQ/L (136-147); UREA NITROGEN (BUN) 58 mg/dL (9-23)
[2017-04-25 07:59] VITALS: BP 124/58
[2017-04-25] MEDS ORDERED: HUMULIN N100 UNIT/2 SC (15:15)
[2017-04-25] MEDS ORDERED: QUETIAPINE FUMA25 MG PO (15:15)
[2017-04-25] MEDS ORDERED: FUROSEMIDE40 MG PO (15:15)
[2017-04-25] MEDS ORDERED: METOPROLOL TART50 MG PO (15:15)
[2017-04-25] MEDS ORDERED: SPIRONOLACTONE25 MG PO (15:15)
[2017-04-25] MEDS ORDERED: AMOX TR-K CLV1 EAC3 PO (15:15)
[2017-04-25] MEDS ORDERED: TYLENOL EXTRA500 MG PO (15:16)
[2017-04-25] MEDS ORDERED: PREDNISONE10 MG PO (15:26)
== END 2017-04-25 18:08 | disposition home or self-care (01) | DRG 637 ==
LOC: EME 14:26 → 4WEST 17:34 → EDOF 17:34 → 5EAST 17:34 → ENRESERV 17:49 → 5EAST 19:20 → 4WEST 04-13 05:25 → ENRESERV 04-22 13:02 → 5SOUTH 04-22 19:57
PROVIDERS: Family Medicine; Hospitalist; Internal Medicine Critical Care Medicine; Internal Medicine Nephrology; Internal Medicine Pulmonary Disease; Physician Assistant Medical; Physician Assistant Surgical; Specialist; Student in an Organized Health Care Education/Training Program
PROC: 5A09357 Assistance with Respiratory Ventilation, Less than 24 Consecutive Hours, Continuous Positive Airway Pressure (ICD-10-PCS; 2017-04-13)
PROC: 30233N1 Transfusion of Nonautologous Red Blood Cells into Peripheral Vein, Percutaneous Approach (ICD-10-PCS; principal; 2017-04-18)
DX: E11.621 Type 2 diabetes mellitus with foot ulcer (principal); E11.52 Type 2 diabetes mellitus with diabetic peripheral angiopathy with gangrene; I73.01 Raynaud's syndrome with gangrene; I13.0 Hypertensive heart and chronic kidney disease with heart failure and stage 1 through stage 4 chronic kidney disease, or unspecified chronic kidney disease; N18.3 Chronic kidney disease, stage 3 (moderate); I50.33 Acute on chronic diastolic (congestive) heart failure; J96.21 Acute and chronic respiratory failure with hypoxia; J44.1 Chronic obstructive pulmonary disease with (acute) exacerbation; E87.2 Acidosis; N17.0 Acute kidney failure with tubular necrosis; D53.9 Nutritional anemia, unspecified; D63.1 Anemia in chronic kidney disease; E11.21 Type 2 diabetes mellitus with diabetic nephropathy; E11.22 Type 2 diabetes mellitus with diabetic chronic kidney disease; E11.40 Type 2 diabetes mellitus with diabetic neuropathy, unspecified; E11.65 Type 2 diabetes mellitus with hyperglycemia; T38.0X5A Adverse effect of glucocorticoids and synthetic analogues, initial encounter; L97.429 Non-pressure chronic ulcer of left heel and midfoot with unspecified severity; L97.519 Non-pressure chronic ulcer of other part of right foot with unspecified severity; L98.499 Non-pressure chronic ulcer of skin of other sites with unspecified severity; G25.3 Myoclonus; I48.92 Unspecified atrial flutter; N28.0 Ischemia and infarction of kidney; I27.20 Pulmonary hypertension, unspecified; I08.3 Combined rheumatic disorders of mitral, aortic and tricuspid valves; Z99.81 Dependence on supplemental oxygen; R27.8 Other lack of coordination; R41.82 Altered mental status, unspecified; T40.4X5A Adverse effect of other synthetic narcotics, initial encounter; E78.5 Hyperlipidemia, unspecified; F32.9 Major depressive disorder, single episode, unspecified; G47.33 Obstructive sleep apnea (adult) (pediatric); I25.10 Atherosclerotic heart disease of native coronary artery without angina pectoris; I70.209 Unspecified atherosclerosis of native arteries of extremities, unspecified extremity; M10.9 Gout, unspecified; N40.1 Benign prostatic hyperplasia with lower urinary tract symptoms; R39.11 Hesitancy of micturition; E66.9 Obesity, unspecified; Z68.37 Body mass index [BMI] 37.0-37.9, adult; Z79.02 Long term (current) use of antithrombotics/antiplatelets; Z79.4 Long term (current) use of insulin; Z87.891 Personal history of nicotine dependence; Z95.0 Presence of cardiac pacemaker; Z95.5 Presence of coronary angioplasty implant and graft; Z89.411 Acquired absence of right great toe; Z89.432 Acquired absence of left foot
CPT/HCPCS: 36600; 71010; 71045; 71046; 73650; 80048; 80048 91; 80053; 80069; 80202; 81003; 82570; 82595 90; 82803; 82948; 83520 90; 83540; 83605; 83735; 83880; 83970; 84100; 84156; 84466; 84484; 84550; 84999; 85014; 85018; 85025; 85027; 85046; 85379; 85610; 85730; 86021 90; 86038; 86430; 86850; 86900; 86901; 86920; 87040; 87070; 87075; 87076; 87086; 87185; 87205; 87502; 87641; 93005; 93306; 94002; 94003; 94640; 94640 76; 94660; 94667; 94668; 94760; 94799; 97530 GO; 97530 GP; 99202; 99281; 99285; C1755; J0881; J1630; J1644; J1756; J1815; J1940; J2270; J2543; J2920; J2930; J3370; J3475; J7030; J7040; J7050; J7070; J7512; P9016

== ENCOUNTER 2017-06-08 22:41 | Emergency (ER) | payer OTHER ==
[~2017-06-08] VITALS: Ht 160 cm; Wt 84.7 kg
[~2017-06-08 22:41] MED LIST changes: +AMOX TR-K CLV1 EAC3 PO; +BREO ELLIPTA I1 EACH IH; +HUMULIN 70100 UNIT/3 SC; +PROCARDIA XL30 MG PO; +QUETIAPINE FUMA25 MG PO; +SPIRONOLACTONE25 MG PO
[2017-06-09 05:46] VITALS: BP 110/75
== END 2017-06-09 05:48 | disposition home or self-care (01) ==
LOC: EME → EDBD 22:41 → EME 22:41
PROC: 0QSQXZZ Reposition Right Toe Phalanx, External Approach (ICD-10-PCS; principal; 2017-06-09)
DX: M16.0 Bilateral primary osteoarthritis of hip (principal); S92.911A Unspecified fracture of right toe(s), initial encounter for closed fracture; S51.812A Laceration without foreign body of left forearm, initial encounter; W18.30XA Fall on same level, unspecified, initial encounter; Y93.01 Activity, walking, marching and hiking; M85.80 Other specified disorders of bone density and structure, unspecified site; N32.89 Other specified disorders of bladder; I25.10 Atherosclerotic heart disease of native coronary artery without angina pectoris; E11.40 Type 2 diabetes mellitus with diabetic neuropathy, unspecified; E78.5 Hyperlipidemia, unspecified; J44.9 Chronic obstructive pulmonary disease, unspecified; I73.00 Raynaud's syndrome without gangrene; M10.9 Gout, unspecified; Z79.02 Long term (current) use of antithrombotics/antiplatelets; Z79.84 Long term (current) use of oral hypoglycemic drugs; Z95.5 Presence of coronary angioplasty implant and graft; Z87.891 Personal history of nicotine dependence; Z89.412 Acquired absence of left great toe; Z89.422 Acquired absence of other left toe(s); Z88.6 Allergy status to analgesic agent; Z88.5 Allergy status to narcotic agent
CPT/HCPCS: 70450; 72192; 73502; 73610; 73660; 99281; 99284